=== PATIENT | female | born 1995 | race Caucasian/White ===

== ENCOUNTER → 2016-11-08 | Outpatient (CLI) | payer OTHER ==
[~2016-11-08] MED LIST: ALBUTEROL0.09 MG/A2 INH; ALBUTEROL0.09 MG/AC IH; AMOXICILLIN,AM875 MG PO; AMOXICILLIN500 MG PO; AMOXIL875 MG PO; ANAPROX DS550 MG PO; ATARAX25 MG PO; AUGMENTIN 875 M1 TAB PO; BENTYL10 MG PO; CATAFLAM50 MG PO; CEPHALEXIN500 M1 PO; CHILDREN'S CLARI5 MG PO; CIPRO250 MG PO; CIPROFLOXACIN500 MG PO; CLARITIN10 MG PO; CLINDAMYCIN150 MG PO; CORDROL20 MG PO; CYCLOBENZAPRINE5 M3 PO; DICYCLOMINE HCL20 MG PO; DIFLUCAN150 MG PO; DIFLUCAN50 MG PO; DOXYCYCLINE100 M2 PO; FIORICET 325 MG1 TAB PO; FLAGYL500 MG PO; FLEXERIL10 MG PO; FLEXERIL5 MG PO; HYDROCODONE BIT1 T11 PO; IBU800 M1 PO; KEFLEX500 M1 PO; KEFLEX500 MG PO; KENALOG0.11 TP; LIDEX 0.05% CRE15 GM T; LIDEX0.05% T; LORATADINE10 M1 PO; MACROBID100 M1 PO; MEDROL DOSEPAK4 MG PO; MOTRIN400 MG PO; MOTRIN600 MG PO; MOTRIN800 MG PO; MYCOLOG CREAM 115 GM PO; Motrin,Rufen800 MG PO; NAPROSYN500 MG PO; NEXIUM40 MG PO; NIX CREME RINSE60 M1 PO; NKHM; OMNICEF300 MG PO; PEN-VEE K500 MG PO; PONSTEL250 MG PO; PREDNICOT20 MG PO; PRENATAL1 TA2 PO; PRENATAL1 TA6 PO; PREVACID SOLUTA30 MG PO; PRILOSEC20 M1 PO; PRILOSEC20 MG PO; PROVENTIL0.09 MG/AC IH; PYRIDIUM200 MG PO; ROBITUSSIN AC 10 MG/ PO; ROBITUSSIN AC 110 ML PO; ROBITUSSIN DM120 ML PO; ROBITUSSIN DM240 ML PO; TESSALON PERLE200 MG PO; TRAMADOL HCL50 MG PO; TYLENOL325 M1 PO; ULTRAM50 MG PO; VIBRAMYCIN100 MG PO; VICODIN 5/500 505 M1 PO; ZANTAC 150150 MG PO; ZITHROMAX Z PA250 MG PO; ZITHROMAX250 MG PO; ZOFRAN ODT4 MG SL; ZOFRAN4 MG PO; ZYRTEC10 M1 PO; Zofran4 MG PO
== END | disposition home or self-care (01) ==
LOC: US 17:00
DX: R10.2 Pelvic and perineal pain (principal)

== ENCOUNTER 2016-11-10 17:53 | Emergency (ER) | payer OTHER ==
[~2016-11-10] VITALS: Wt 72.6 kg
[~2016-11-10 17:53] MED LIST changes: -CEPHALEXIN500 M1 PO; -NIX CREME RINSE60 M1 PO; -TYLENOL325 M1 PO
[2016-11-10] MEDS ORDERED: CEPHALEXIN500 M1 PO (18:32)
[2016-11-10] MEDS ORDERED: TYLENOL325 M1 PO (18:32)
[2016-11-10] MEDS ORDERED: NIX CREME RINSE60 M1 PO (18:32)
== END 2016-11-10 19:46 | disposition home or self-care (01) ==
LOC: ED 17:53
DX: B85.2 Pediculosis, unspecified (principal); L02.811 Cutaneous abscess of head [any part, except face]; K21.9 Gastro-esophageal reflux disease without esophagitis; G43.909 Migraine, unspecified, not intractable, without status migrainosus; Z88.2 Allergy status to sulfonamides

== ENCOUNTER 2016-11-26 00:58 | Emergency (ER) | payer SELFPAY ==
[~2016-11-26] VITALS: Ht 167.6 cm; Wt 56.2 kg
[~2016-11-26 00:58] MED LIST changes: +CEPHALEXIN500 M1 PO; +NIX CREME RINSE60 M1 PO; +TYLENOL325 M1 PO
[2016-11-26 01:06] VITALS: BP 116/70
[2016-11-26] MEDS ORDERED: ZITHROMAX250 MG PO (02:26)
[2016-11-26 02:36] LABS: BILIRUBIN NEGATIVE (NEGATIVE); BLOOD NEGATIVE (NEGATIVE); CLARITY CLEAR (CLEAR); COLOR YELLOW (YELLOW); GLUCOSE NEGATIVE (NEGATIVE); KETONE NEGATIVE (NEGATIVE); LEUKO ESTERASE NEGATIVE (NEGATIVE); NITRITE NEGATIVE (NEGATIVE); PROTEIN NEGATIVE (NEGATIVE); SPECIFIC GRAVITY 1.015 (1.005-1.030); UROBILINOGEN 0.2 E.U./dl (0.2-1.0)
[2016-11-26 02:49] LABS: URINE REFLEX COMMENT NO (NO)
== END 2016-11-26 02:33 | disposition home or self-care (01) ==
LOC: ED 00:58
PROVIDERS: Emergency Medicine Emergency Medical Services
DX: N76.0 Acute vaginitis (principal); F17.200 Nicotine dependence, unspecified, uncomplicated; K21.9 Gastro-esophageal reflux disease without esophagitis; G43.909 Migraine, unspecified, not intractable, without status migrainosus; Z88.2 Allergy status to sulfonamides

== ENCOUNTER 2017-09-03 16:44 | Emergency (ER) | payer OTHER ==
[~2017-09-03] VITALS: Ht 167.6 cm; Wt 49.9 kg
[2017-09-03 17:31] LABS: BILIRUBIN 1+ (NEGATIVE); BLOOD 3+ (NEGATIVE); CLARITY CLOUDY (CLEAR); COLOR YELLOW (YELLOW); GLUCOSE NEGATIVE (NEGATIVE); KETONE TRACE (NEGATIVE); LEUKO ESTERASE 1+ (NEGATIVE); NITRITE NEGATIVE (NEGATIVE); PH 5.5 (5.0-9.0); SPECIFIC GRAVITY >= 1.030 (1.005-1.030)
[2017-09-03 17:39] LABS: BACTERIA 4+; RBC TNTC rbc/hpf (0-2); WBC TNTC wbc/hpf (0-5)
[2017-09-03] MEDS ORDERED: AMINOPHYLLIN200 MG PO (19:02)
[2017-09-03 19:19] VITALS: BP 130/80
== END 2017-09-03 19:19 | disposition home or self-care (01) ==
LOC: ED 16:44
PROVIDERS: Emergency Medicine
DX: N39.0 Urinary tract infection, site not specified (principal); K59.00 Constipation, unspecified; K21.9 Gastro-esophageal reflux disease without esophagitis; G43.909 Migraine, unspecified, not intractable, without status migrainosus; Z90.89 Acquired absence of other organs; Z88.2 Allergy status to sulfonamides

== ENCOUNTER 2018-03-04 21:32 | Inpatient (IN) | payer OTHER ==
[~2018-03-04] VITALS: Wt 52.2 kg
[2018-03-04 00:20] VITALS: BP 100/49
[~2018-03-04 21:32] MED LIST changes: +AMINOPHYLLIN200 MG PO
[2018-03-04 21:37] VITALS: BP 107/63
[2018-03-04 22:42] LABS: BASO % 0.2 % (0.0-1.0); EOS # 0.1 10*3/uL (0.0-0.4); EOS % 1.3 % (1.0-4.0); HEMATOCRIT 37.2 % (37.0-47.0); HEMOGLOBIN 12.5 g/dl (12.0-16.0); LYMPH # 2.3 10*3/uL (1.3-4.4); LYMPH % 21.1 % (27.0-41.0); MEAN CELL VOLUME 83.8 fl (81.0-99.0); MEAN CORPUSCULAR HGB 28.2 pg (27.0-31.0); MEAN CORPUSCULAR HGB CONC 33.6 g/dl (33.0-37.0); MONO # 0.8 10*3/uL (0.1-1.0); MONO % 7.1 % (3.0-9.0); NEUT # 7.6 10*3/uL (2.3-7.9); PLATELET COUNT AUTOMATED 265 10*3/uL (130-400); RED BLOOD COUNT 4.44 10*6/uL (4.10-5.10); RED CELL DISTRI WIDTH 12.5 % (0-14.5); WHITE BLOOD COUNT 10.9 10*3/uL (4.8-10.8)
[2018-03-04 22:58] LABS: ALBUMIN 3.4 gm/dl (3.1-4.5); ALKALINE PHOSPHATASE 74 U/L (45-117); B-hCG (QUALITATIVE) NEGATIVE (NEGATIVE); BUN 9 mg/dl (7-24); CHLORIDE 100 mmol/L (98-107); CREATININE 1.12 mg/dL (0.55-1.02); LIPASE 82 U/L (73-393); POTASSIUM 3.3 mmol/L (3.5-5.1); SGOT/AST 30 IU/L (3-35); SGPT/ALT 44 U/L (12-78); SODIUM 134 mmol/L (136-145); TOTAL PROTEIN 8.1 gm/dL (6.4-8.2)
[2018-03-04 23:43] VITALS: BP 101/44
[2018-03-05] VITALS: BP 150/80
[2018-03-05 00:07] LABS: BILIRUBIN 1+ (NEGATIVE); BLOOD NEGATIVE (NEGATIVE); CLARITY CLEAR (CLEAR); COLOR YELLOW (YELLOW); GLUCOSE NEGATIVE (NEGATIVE); KETONE TRACE (NEGATIVE); LEUKO ESTERASE TRACE (NEGATIVE); NITRITE NEGATIVE (NEGATIVE)
[2018-03-05 00:16] LABS: BACTERIA 1+; RBC 0-2 rbc/hpf (0-2)
[2018-03-05 06:28] LABS: BUN 8 mg/dl (7-24); CHLORIDE 112 mmol/L (98-107); CREATININE 0.73 mg/dL (0.55-1.02); FREE T4 1.55 ng/dl (0.76-1.46); PHOSPHOROUS 4.2 mg/dL (2.5-4.9); POTASSIUM 4.2 mmol/L (3.5-5.1); SODIUM 145 mmol/L (136-145)
[2018-03-05 06:33] LABS: THYROID STIM HORMONE (HS) 0.615 uIU/ml (0.358-4.75)
[2018-03-05 06:34] LABS: BASO % 0.3 % (0.0-1.0); EOS # 0.3 10*3/uL (0.0-0.4); EOS % 3.5 % (1.0-4.0); LYMPH # 2.7 10*3/uL (1.3-4.4); LYMPH % 34.8 % (27.0-41.0); MEAN CORPUSCULAR HGB 28.6 pg (27.0-31.0); MEAN CORPUSCULAR HGB CONC 32.9 g/dl (33.0-37.0); MEAN PLATELET VOLUME 11.2 fl (9.6-12.3); MONO # 0.8 10*3/uL (0.1-1.0); MONO % 10.4 % (3.0-9.0); NEUT # 3.9 10*3/uL (2.3-7.9); NEUT % 50.7 % (47.0-73.0); PLATELET COUNT AUTOMATED 211 10*3/uL (130-400); RED BLOOD COUNT 3.46 10*6/uL (4.10-5.10); RED CELL DISTRI WIDTH 12.8 % (0-14.5); WHITE BLOOD COUNT 7.7 10*3/uL (4.8-10.8)
[2018-03-05 06:44] LABS: HEMATOCRIT 30.1 % (37.0-47.0); HEMOGLOBIN 9.9 g/dl (12.0-16.0)
[2018-03-05 08:00] VITALS: BP 87/50
[2018-03-05 08:38] LABS: VITAMIN D, 25-HYDROXY 20.9 ng/mL (30-100)
[2018-03-05 10:20] VITALS: BP 108/56
[2018-03-05 12:00] VITALS: BP 104/56
[2018-03-05 16:00] VITALS: BP 101/54
[2018-03-05 20:00] VITALS: BP 109/61
[2018-03-06] VITALS: BP 112/67
[2018-03-06 07:21] LABS: BASO % 0.1 % (0.0-1.0); HEMATOCRIT 34.1 % (37.0-47.0); HEMOGLOBIN 10.9 g/dl (12.0-16.0); LYMPH # 1.4 10*3/uL (1.3-4.4); LYMPH % 18.8 % (27.0-41.0); MEAN CELL VOLUME 87.4 fl (81.0-99.0); MEAN CORPUSCULAR HGB 27.9 pg (27.0-31.0); MEAN PLATELET VOLUME 11.1 fl (9.6-12.3); MONO # 0.3 10*3/uL (0.1-1.0); MONO % 3.3 % (3.0-9.0); NEUT # 5.8 10*3/uL (2.3-7.9); NEUT % 77.1 % (47.0-73.0); PLATELET COUNT AUTOMATED 246 10*3/uL (130-400); RED CELL DISTRI WIDTH 12.8 % (0-14.5); WHITE BLOOD COUNT 7.5 10*3/uL (4.8-10.8)
[2018-03-06 07:34] LABS: BUN 5 mg/dl (7-24); CHLORIDE 112 mmol/L (98-107); CREATININE 0.61 mg/dL (0.55-1.02); POTASSIUM 4.2 mmol/L (3.5-5.1); SODIUM 143 mmol/L (136-145)
[2018-03-06 08:00] VITALS: BP 108/55
[2018-03-06] MEDS ORDERED: LEVAQUIN750 M1 PO (10:06)
[2018-03-06] MEDS ORDERED: PREDNISONE10 MG PO (10:06)
[2018-03-06] MEDS ORDERED: VITAMIN D-32000 UNIT PO (10:06)
[2018-03-06] MEDS ORDERED: MUCINEX ER600 MG PO (10:06)
== END 2018-03-06 10:27 | disposition home or self-care (01) | DRG 871 ==
LOC: ED 21:32 → 5E 22:47 → EDHOLD 22:47 → 5E 23:29
PROVIDERS: Emergency Medicine Emergency Medical Services; Family Medicine; Internal Medicine
DX: A41.9 Sepsis, unspecified organism (principal); J18.1 Lobar pneumonia, unspecified organism; E44.0 Moderate protein-calorie malnutrition; E87.1 Hypo-osmolality and hyponatremia; Z68.1 Body mass index [BMI] 19.9 or less, adult; E87.6 Hypokalemia; E86.0 Dehydration; L23.9 Allergic contact dermatitis, unspecified cause; F17.200 Nicotine dependence, unspecified, uncomplicated; L23.7 Allergic contact dermatitis due to plants, except food; K59.00 Constipation, unspecified; R79.82 Elevated C-reactive protein (CRP); G43.909 Migraine, unspecified, not intractable, without status migrainosus; M54.5 Low back pain; K21.9 Gastro-esophageal reflux disease without esophagitis; Z88.2 Allergy status to sulfonamides; Z71.6 Tobacco abuse counseling; Z72.89 Other problems related to lifestyle; Z87.19 Personal history of other diseases of the digestive system; Z82.49 Family history of ischemic heart disease and other diseases of the circulatory system; Z83.6 Family history of other diseases of the respiratory system

== ENCOUNTER 2018-06-23 10:51 | Emergency (ER) | payer OTHER ==
[~2018-06-23] VITALS: Ht 170.1 cm; Wt 54.4 kg
[~2018-06-23 10:51] MED LIST changes: +CLINDAMYCIN HC300 MG PO; +LEVAQUIN750 M1 PO; +MUCINEX ER600 MG PO; +PREDNISONE10 MG PO; +VITAMIN D-32000 UNIT PO
[2018-06-23 10:56] VITALS: BP 118/68
[2018-06-23 11:47] LABS: BILIRUBIN NEGATIVE (NEGATIVE); BLOOD 3+ (NEGATIVE); CLARITY CLOUDY (CLEAR); COLOR YELLOW (YELLOW); GLUCOSE NEGATIVE (NEGATIVE); KETONE TRACE (NEGATIVE); LEUKO ESTERASE NEGATIVE (NEGATIVE); NITRITE NEGATIVE (NEGATIVE); SPECIFIC GRAVITY >= 1.030 (1.005-1.030); UROBILINOGEN 0.2 E.U./dl (0.2-1.0)
[2018-06-23 12:02] LABS: RBC TNTC rbc/hpf (0-2)
[2018-06-23 12:03] LABS: CALCIUM OXALATE CRYSTALS 2+; MUCOUS 1+
[2018-06-23 12:06] LABS: BACTERIA 1+
[2018-06-23] MEDS ORDERED: AMOXICILLIN500 M2 PO (12:34)
[2018-06-23] MEDS ORDERED: Motrin,Rufen800 MG PO (12:34)
== END 2018-06-23 13:32 | disposition home or self-care (01) ==
LOC: ED 10:51
PROVIDERS: Nurse Practitioner Family
DX: K08.89 Other specified disorders of teeth and supporting structures (principal); N89.8 Other specified noninflammatory disorders of vagina; F17.200 Nicotine dependence, unspecified, uncomplicated; Z11.3 Encounter for screening for infections with a predominantly sexual mode of transmission; Z88.2 Allergy status to sulfonamides; Z79.899 Other long term (current) drug therapy; Z79.2 Long term (current) use of antibiotics; Z98.890 Other specified postprocedural states

== ENCOUNTER 2018-07-05 08:29 | Emergency (ER) | payer OTHER ==
[~2018-07-05] VITALS: Ht 167.6 cm; Wt 54.4 kg
[~2018-07-05 08:29] MED LIST changes: +AMOXICILLIN500 M2 PO
[2018-07-05 08:32] VITALS: BP 125/76
[2018-07-05] MEDS ORDERED: ZOFRAN4 MG PO (09:00)
[2018-07-05] MEDS ORDERED: PENICILLIN VK500 MG PO (09:00)
[2018-07-05] MEDS ORDERED: Peridex 473 ML473 ML PO (09:00)
[2018-07-05] MEDS ORDERED: NAPROSYN500 MG PO (09:00)
== END 2018-07-05 10:09 | disposition home or self-care (01) ==
LOC: ED 08:29
DX: K02.9 Dental caries, unspecified (principal); R03.0 Elevated blood-pressure reading, without diagnosis of hypertension; K08.89 Other specified disorders of teeth and supporting structures; K21.9 Gastro-esophageal reflux disease without esophagitis; E87.1 Hypo-osmolality and hyponatremia; E87.6 Hypokalemia; G43.909 Migraine, unspecified, not intractable, without status migrainosus; F10.10 Alcohol abuse, uncomplicated; Z90.89 Acquired absence of other organs; Z88.2 Allergy status to sulfonamides

== ENCOUNTER 2018-09-18 12:29 | Emergency (ER) | payer OTHER ==
[~2018-09-18] VITALS: Wt 54.4 kg
[~2018-09-18 12:29] MED LIST changes: +PENICILLIN VK500 MG PO; +Peridex 473 ML473 ML PO
[2018-09-18 12:30] VITALS: BP 116/51
[2018-09-18] MEDS ORDERED: IBU800 MG PO (14:20)
== END 2018-09-18 14:16 | disposition home or self-care (01) ==
LOC: ED 12:29
DX: G56.01 Carpal tunnel syndrome, right upper limb (principal); F17.200 Nicotine dependence, unspecified, uncomplicated; Z88.2 Allergy status to sulfonamides

== ENCOUNTER 2018-10-09 10:38 | Emergency (ER) | payer OTHER ==
[~2018-10-09 10:38] MED LIST changes: +IBU800 MG PO
[2018-10-09 10:40] VITALS: BP 114/34
[2018-10-09] MEDS ORDERED: IBUPROFEN600 MG PO (11:27)
[2018-10-09] MEDS ORDERED: AUGMENTIN 875875 MG PO (11:27)
[2018-12-16] MEDS ORDERED: NAPROSYN500 MG PO (12:28)
[2018-12-16] MEDS ORDERED: CLINDAMYCIN HC300 MG PO (12:28)
[2018-12-26] MEDS ORDERED: PENICILLIN-VK500 MG PO (08:15)
[2018-12-26] MEDS ORDERED: NAPROSYN500 MG PO (08:15)
[2018-12-26] MEDS ORDERED: TYLENOL325 M1 PO (08:15)
[2019-02-10] MEDS ORDERED: ZITHROMAX250 MG PO (05:01)
[2019-02-10] MEDS ORDERED: ULTRAM50 MG PO (05:01)
== END 2018-10-09 11:35 | disposition home or self-care (01) ==
LOC: ED 10:38
DX: K08.89 Other specified disorders of teeth and supporting structures (principal); F17.200 Nicotine dependence, unspecified, uncomplicated; Z88.2 Allergy status to sulfonamides

== ENCOUNTER → 2018-10-14 | Outpatient (CLI) | payer OTHER ==
[~2018-10-14] MED LIST changes: +AUGMENTIN 875875 MG PO; +IBUPROFEN600 MG PO; +PENICILLIN-VK500 MG PO; +PREDNISONE20 M1 PO
== END | disposition home or self-care (01) ==
LOC: ORTHO 02:15
DX: M25.531 Pain in right wrist (principal)

== ENCOUNTER 2018-12-11 22:26 | Emergency (ER) | payer OTHER ==
[~2018-12-11] VITALS: Ht 167.6 cm; Wt 54.4 kg
[~2018-12-11 22:26] MED LIST changes: -PENICILLIN-VK500 MG PO; -PREDNISONE20 M1 PO
[2018-12-11 22:32] VITALS: BP 108/66
[2018-12-11 23:14] LABS: BILIRUBIN NEGATIVE (NEGATIVE); BLOOD NEGATIVE (NEGATIVE); CLARITY CLEAR (CLEAR); COLOR YELLOW (YELLOW); GLUCOSE NEGATIVE (NEGATIVE); KETONE NEGATIVE (NEGATIVE); LEUKO ESTERASE NEGATIVE (NEGATIVE); NITRITE NEGATIVE (NEGATIVE); PH 7.5 (5.0-9.0); UROBILINOGEN 0.2 E.U./dl (0.2-1.0)
[2018-12-11 23:33] LABS: WBC 0-2 wbc/hpf (0-5)
[2018-12-16] MEDS ORDERED: CLINDAMYCIN HC300 MG PO (12:28)
[2018-12-16] MEDS ORDERED: NAPROSYN500 MG PO (12:28)
[2018-12-26] MEDS ORDERED: PENICILLIN-VK500 MG PO (08:15)
[2018-12-26] MEDS ORDERED: NAPROSYN500 MG PO (08:15)
[2018-12-26] MEDS ORDERED: TYLENOL325 M1 PO (08:15)
[2019-02-10] MEDS ORDERED: ZITHROMAX250 MG PO (05:01)
[2019-02-10] MEDS ORDERED: ULTRAM50 MG PO (05:01)
== END 2018-12-11 23:58 | disposition home or self-care (01) ==
LOC: ED 22:26
PROVIDERS: Emergency Medicine Emergency Medical Services
DX: K04.7 Periapical abscess without sinus (principal); J32.9 Chronic sinusitis, unspecified; R10.9 Unspecified abdominal pain; K21.9 Gastro-esophageal reflux disease without esophagitis; G43.909 Migraine, unspecified, not intractable, without status migrainosus; F17.200 Nicotine dependence, unspecified, uncomplicated; Z88.2 Allergy status to sulfonamides; Z79.899 Other long term (current) drug therapy; Z79.2 Long term (current) use of antibiotics

== ENCOUNTER 2019-04-05 10:34 | Emergency (ER) | payer OTHER ==
[~2019-04-05] VITALS: Ht 167.6 cm; Wt 54.4 kg
[~2019-04-05 10:34] MED LIST changes: +PENICILLIN-VK500 MG PO
[2019-04-05 11:31] LABS: BASO % 0.4 % (0.0-1.0); EOS # 0.6 10*3/uL (0.0-0.4); EOS % 7.1 % (1.0-4.0); HEMATOCRIT 40.3 % (37.0-47.0); HEMOGLOBIN 13.6 g/dl (12.0-16.0); LYMPH # 3.8 10*3/uL (1.3-4.4); LYMPH % 48.3 % (27.0-41.0); MEAN CELL VOLUME 86.7 fl (81.0-99.0); MEAN CORPUSCULAR HGB 29.2 pg (27.0-31.0); MEAN CORPUSCULAR HGB CONC 33.7 g/dl (33.0-37.0); MEAN PLATELET VOLUME 9.7 fl (9.6-12.3); MONO # 0.5 10*3/uL (0.1-1.0); MONO % 6.4 % (3.0-9.0); NEUT % 37.5 % (47.0-73.0); PLATELET COUNT AUTOMATED 316 10*3/uL (130-400); RED BLOOD COUNT 4.65 10*6/uL (4.10-5.10); WHITE BLOOD COUNT 7.9 10*3/uL (4.8-10.8)
[2019-04-05 12:15] LABS: ALBUMIN 3.5 gm/dl (3.1-4.5); ALKALINE PHOSPHATASE 70 U/L (45-117); BUN 7 mg/dl (7-24); CHLORIDE 106 mmol/L (98-107); CREATININE 0.69 mg/dL (0.55-1.02); SGOT/AST 16 IU/L (3-35); SGPT/ALT 26 U/L (12-78); SODIUM 138 mmol/L (136-145); TOTAL PROTEIN 7.2 gm/dL (6.4-8.2)
[2019-04-05 12:20] VITALS: BP 108/63
[2019-04-05 12:28] LABS: BILIRUBIN NEGATIVE (NEGATIVE); BLOOD 1+ (NEGATIVE); CLARITY CLOUDY (CLEAR); COLOR YELLOW (YELLOW); GLUCOSE NEGATIVE (NEGATIVE); KETONE NEGATIVE (NEGATIVE); LEUKO ESTERASE TRACE (NEGATIVE); NITRITE NEGATIVE (NEGATIVE); SPECIFIC GRAVITY 1.025 (1.005-1.030); UROBILINOGEN 0.2 E.U./dl (0.2-1.0)
[2019-04-05 12:37] LABS: RBC 41-50 rbc/hpf (0-2)
[2019-04-05 12:40] LABS: BACTERIA 3+; CALCIUM OXALATE CRYSTALS 2+; EPITHELIAL CELLS 15-20
[2019-04-05] MEDS ORDERED: PREDNISONE20 M1 PO (15:11)
== END 2019-04-05 15:34 | disposition home or self-care (01) ==
LOC: ED 10:34
PROVIDERS: Physician Assistant
DX: M54.32 Sciatica, left side (principal); M79.605 Pain in left leg; F17.200 Nicotine dependence, unspecified, uncomplicated; Z88.2 Allergy status to sulfonamides

== ENCOUNTER 2019-05-06 15:36 | Emergency (ER) | payer OTHER ==
[~2019-05-06] VITALS: Ht 167.6 cm; Wt 56.7 kg
[~2019-05-06 15:36] MED LIST changes: +PREDNISONE20 M1 PO
[2019-05-06 15:39] VITALS: BP 121/76
[2019-05-06 17:22] LABS: INTERNATIONAL NORM RATIO 0.9 (2.0-3.5)
[2019-05-06 17:29] LABS: ALBUMIN 3.7 gm/dl (3.1-4.5); ALKALINE PHOSPHATASE 89 U/L (45-117); BUN 9 mg/dl (7-24); CHLORIDE 102 mmol/L (98-107); CREATININE 0.84 mg/dL (0.55-1.02); POTASSIUM 4.1 mmol/L (3.5-5.1); SGOT/AST 43 IU/L (3-35); SODIUM 137 mmol/L (136-145)
[2019-05-06 17:41] LABS: SGPT/ALT 84 U/L (12-78)
== END 2019-05-06 18:24 | disposition left against medical advice (07) ==
LOC: ED 15:36
PROVIDERS: Nurse Practitioner Family
DX: M79.605 Pain in left leg (principal); F17.200 Nicotine dependence, unspecified, uncomplicated; Z90.89 Acquired absence of other organs; Z79.899 Other long term (current) drug therapy; Z79.2 Long term (current) use of antibiotics; Z88.2 Allergy status to sulfonamides; Z98.890 Other specified postprocedural states

== ENCOUNTER 2019-07-04 23:42 | Emergency (ER) | payer OTHER ==
[~2019-07-04] VITALS: Ht 167.6 cm; Wt 54.0 kg
[2019-07-04 23:42] VITALS: BP 130/78
[2019-07-05 00:03] LABS: BILIRUBIN NEGATIVE (NEGATIVE); BLOOD NEGATIVE (NEGATIVE); CLARITY SL CLOUDY (CLEAR); COLOR YELLOW (YELLOW); GLUCOSE NEGATIVE (NEGATIVE); KETONE NEGATIVE (NEGATIVE); LEUKO ESTERASE TRACE (NEGATIVE); NITRITE NEGATIVE (NEGATIVE); SPECIFIC GRAVITY >= 1.030 (1.005-1.030); UROBILINOGEN 0.2 E.U./dl (0.2-1.0)
[2019-07-05 00:19] LABS: EPITHELIAL CELLS 30-35; WBC 16-20 wbc/hpf (0-5)
[2019-07-05] MEDS ORDERED: DOXYCYCLINE100 M3 PO (00:36)
[2019-07-05] MEDS ORDERED: PYRIDIUM200 M1 PO (00:36)
[2019-07-05] MEDS ORDERED: KEFLEX500 M1 PO (00:40)
== END 2019-07-05 00:56 | disposition home or self-care (01) ==
LOC: ED 23:42
PROVIDERS: Emergency Medicine Emergency Medical Services
DX: N39.0 Urinary tract infection, site not specified (principal); K21.9 Gastro-esophageal reflux disease without esophagitis; G43.909 Migraine, unspecified, not intractable, without status migrainosus; F17.200 Nicotine dependence, unspecified, uncomplicated; Z20.2 Contact with and (suspected) exposure to infections with a predominantly sexual mode of transmission; Z88.2 Allergy status to sulfonamides

== ENCOUNTER 2019-07-30 05:35 | Emergency (ER) | payer OTHER ==
[~2019-07-30] VITALS: Ht 167.6 cm; Wt 54.4 kg
[~2019-07-30 05:35] MED LIST changes: +DOXYCYCLINE100 M3 PO; +PYRIDIUM200 M1 PO
[2019-07-30 05:36] VITALS: BP 117/79
== END 2019-07-30 06:25 | disposition home or self-care (01) ==
LOC: ED 05:35
DX: S46.912A Strain of unspecified muscle, fascia and tendon at shoulder and upper arm level, left arm, initial encounter (principal); K21.9 Gastro-esophageal reflux disease without esophagitis; G43.909 Migraine, unspecified, not intractable, without status migrainosus; J45.909 Unspecified asthma, uncomplicated; F17.200 Nicotine dependence, unspecified, uncomplicated; Z88.2 Allergy status to sulfonamides; Z79.899 Other long term (current) drug therapy; Z79.2 Long term (current) use of antibiotics; W50.0XXA Accidental hit or strike by another person, initial encounter; Y93.89 Activity, other specified; Y92.89 Other specified places as the place of occurrence of the external cause; Y99.8 Other external cause status

== ENCOUNTER 2019-08-12 01:10 | Emergency (ER) | payer OTHER ==
[~2019-08-12] VITALS: Ht 170.1 cm; Wt 45.4 kg
[2019-08-12 03:00] VITALS: BP 105/71
== END 2019-08-12 06:10 | disposition home or self-care (01) ==
LOC: ED 01:10
DX: T40.2X1A Poisoning by other opioids, accidental (unintentional), initial encounter (principal); R40.20 Unspecified coma; R47.81 Slurred speech; R45.1 Restlessness and agitation; K21.9 Gastro-esophageal reflux disease without esophagitis; G43.909 Migraine, unspecified, not intractable, without status migrainosus; J45.909 Unspecified asthma, uncomplicated; F17.200 Nicotine dependence, unspecified, uncomplicated; Z88.2 Allergy status to sulfonamides; Y92.481 Parking lot as the place of occurrence of the external cause

== ENCOUNTER 2020-03-08 22:34 | Emergency (ER) | payer OTHER ==
[2020-03-08 22:36] VITALS: BP 105/66
[2020-03-08 23:16] LABS: BASO % 0.2 % (0.0-1.0); EOS # 0.2 10*3/uL (0.0-0.4); EOS % 3.7 % (1.0-4.0); HEMATOCRIT 40.2 % (37.0-47.0); LYMPH # 2.1 10*3/uL (1.3-4.4); MEAN CORPUSCULAR HGB 29.3 pg (27.0-31.0); MEAN CORPUSCULAR HGB CONC 33.3 g/dl (33.0-37.0); MEAN PLATELET VOLUME 9.6 fl (9.6-12.3); MONO # 0.4 10*3/uL (0.1-1.0); MONO % 6.2 % (3.0-9.0); NEUT # 3.7 10*3/uL (2.3-7.9); NEUT % 57.7 % (47.0-73.0); PLATELET COUNT AUTOMATED 241 10*3/uL (130-400); RED BLOOD COUNT 4.57 10*6/uL (4.10-5.10); RED CELL DISTRI WIDTH 15.1 % (0-14.5); WHITE BLOOD COUNT 6.4 10*3/uL (4.8-10.8)
[2020-03-08 23:26] LABS: ALBUMIN 3.8 gm/dl (3.1-4.5); ALKALINE PHOSPHATASE 95 U/L (45-117); BUN 12 mg/dl (7-24); CHLORIDE 109 mmol/L (98-107); LIPASE 51 U/L (73-393); POTASSIUM 3.7 mmol/L (3.5-5.1); SGOT/AST 138 IU/L (3-35); SGPT/ALT 172 U/L (12-78); SODIUM 139 mmol/L (136-145); TOTAL PROTEIN 7.8 gm/dL (6.4-8.2)
[2020-03-08 23:29] LABS: BACTERIA TRACE; BILIRUBIN NEGATIVE (NEGATIVE); BLOOD NEGATIVE (NEGATIVE); CLARITY CLEAR (CLEAR); COLOR YELLOW (YELLOW); GLUCOSE NEGATIVE (NEGATIVE); KETONE NEGATIVE (NEGATIVE); LEUKO ESTERASE NEGATIVE (NEGATIVE); NITRITE NEGATIVE (NEGATIVE); SPECIFIC GRAVITY 1.005 (1.005-1.030); UROBILINOGEN 0.2 E.U./dl (0.2-1.0); WBC 0-2 wbc/hpf (0-5)
== END 2020-03-09 00:57 | disposition home or self-care (01) ==
LOC: ED 22:34
PROVIDERS: Nurse Practitioner Family
DX: R10.9 Unspecified abdominal pain (principal); K21.9 Gastro-esophageal reflux disease without esophagitis; J45.909 Unspecified asthma, uncomplicated; F17.200 Nicotine dependence, unspecified, uncomplicated; Z88.2 Allergy status to sulfonamides

== ENCOUNTER 2020-04-06 18:12 | Emergency (ER) | payer OTHER ==
[~2020-04-06] VITALS: Ht 167.6 cm; Wt 54.4 kg
[2020-04-06 20:09] LABS: BASO % 0.2 % (0.0-1.0); EOS # 0.1 10*3/uL (0.0-0.4); EOS % 0.9 % (1.0-4.0); HEMATOCRIT 47.1 % (37.0-47.0); LYMPH # 1.8 10*3/uL (1.3-4.4); LYMPH % 17.5 % (27.0-41.0); MEAN CELL VOLUME 89.7 fl (81.0-99.0); MEAN CORPUSCULAR HGB 29.5 pg (27.0-31.0); MEAN CORPUSCULAR HGB CONC 32.9 g/dl (33.0-37.0); MEAN PLATELET VOLUME 9.7 fl (9.6-12.3); MONO # 0.9 10*3/uL (0.1-1.0); MONO % 8.2 % (3.0-9.0); NEUT # 7.6 10*3/uL (2.3-7.9); NEUT % 72.8 % (47.0-73.0); PLATELET COUNT AUTOMATED 254 10*3/uL (130-400); RED BLOOD COUNT 5.25 10*6/uL (4.10-5.10); RED CELL DISTRI WIDTH 14.1 % (0-14.5); WHITE BLOOD COUNT 10.4 10*3/uL (4.8-10.8)
[2020-04-06 20:26] LABS: ALBUMIN 3.8 gm/dl (3.1-4.5); ALKALINE PHOSPHATASE 105 U/L (45-117); BUN 12 mg/dl (7-24); CHLORIDE 105 mmol/L (98-107); CREATININE 1.45 mg/dL (0.55-1.02); POTASSIUM 4.1 mmol/L (3.5-5.1); SGOT/AST 138 IU/L (3-35); SGPT/ALT 169 U/L (12-78); SODIUM 139 mmol/L (136-145); TOTAL PROTEIN 8.2 gm/dL (6.4-8.2)
[2020-04-06 20:30] LABS: ACETAMINOPHEN (TYLENOL) < 5.0 ug/ml (10-30)
[2020-04-07 00:01] LABS: BILIRUBIN NEGATIVE (NEGATIVE); BLOOD TRACE-INTACT (NEGATIVE); CLARITY SL CLOUDY (CLEAR); COLOR YELLOW (YELLOW); GLUCOSE NEGATIVE (NEGATIVE); KETONE NEGATIVE (NEGATIVE); LEUKO ESTERASE NEGATIVE (NEGATIVE); NITRITE NEGATIVE (NEGATIVE); UROBILINOGEN 0.2 E.U./dl (0.2-1.0)
[2020-04-07 00:02] LABS: URINE AMPHETAMINES > 1000 (1000ng/ml); URINE BARBITURATES < 200 (200ng/ml); URINE BENZODIAZEPINES > 200 (200ng/ml); URINE CANNABINOIDS (THC) > 50 (50ng/ml); URINE COCAINE > 300 (300ng/ml); URINE METHADONE < 300 (300ng/ml); URINE OPIATES > 300 (300ng/ml); URINE PHENCYCLIDINE < 25 (25ng/ml)
[2020-04-07 00:11] VITALS: BP 110/60
[2020-04-07 00:28] LABS: BACTERIA 2+; EPITHELIAL CELLS 41-50; WBC 0-2 wbc/hpf (0-5)
== END 2020-04-07 01:05 | disposition home or self-care (01) ==
LOC: ED 18:12
PROVIDERS: Emergency Medicine
DX: S66.911A Strain of unspecified muscle, fascia and tendon at wrist and hand level, right hand, initial encounter (principal); S80.812A Abrasion, left lower leg, initial encounter; S80.811A Abrasion, right lower leg, initial encounter; G43.909 Migraine, unspecified, not intractable, without status migrainosus; F19.10 Other psychoactive substance abuse, uncomplicated; K21.9 Gastro-esophageal reflux disease without esophagitis; J45.909 Unspecified asthma, uncomplicated; F17.200 Nicotine dependence, unspecified, uncomplicated; Z88.2 Allergy status to sulfonamides; X58.XXXA Exposure to other specified factors, initial encounter; Y93.89 Activity, other specified; Y92.89 Other specified places as the place of occurrence of the external cause; Y99.8 Other external cause status

== ENCOUNTER 2020-06-13 10:51 | Emergency (ER) | payer OTHER ==
[~2020-06-13] VITALS: Ht 167.6 cm; Wt 54.4 kg
[2020-06-13 11:11] VITALS: BP 111/71
[2020-06-13 11:53] LABS: BASO % 0.3 % (0.0-1.0); EOS # 0.2 10*3/uL (0.0-0.4); EOS % 4.1 % (1.0-4.0); HEMATOCRIT 39.2 % (37.0-47.0); LYMPH # 1.3 10*3/uL (1.3-4.4); LYMPH % 22.4 % (27.0-41.0); MEAN CELL VOLUME 93.3 fl (81.0-99.0); MEAN CORPUSCULAR HGB 30.7 pg (27.0-31.0); MEAN CORPUSCULAR HGB CONC 32.9 g/dl (33.0-37.0); MEAN PLATELET VOLUME 8.9 fl (9.6-12.3); MONO # 0.5 10*3/uL (0.1-1.0); MONO % 9.1 % (3.0-9.0); NEUT # 3.7 10*3/uL (2.3-7.9); NEUT % 63.9 % (47.0-73.0); PLATELET COUNT AUTOMATED 203 10*3/uL (130-400); RED CELL DISTRI WIDTH 12.9 % (0-14.5); WHITE BLOOD COUNT 5.8 10*3/uL (4.8-10.8)
[2020-06-13 12:09] LABS: ALBUMIN 3.8 gm/dl (3.1-4.5); ALKALINE PHOSPHATASE 86 U/L (45-117); BUN 7 mg/dl (7-24); CHLORIDE 102 mmol/L (98-107); SGOT/AST 117 IU/L (3-35); SGPT/ALT 119 U/L (12-78); SODIUM 135 mmol/L (136-145); TOTAL PROTEIN 7.3 gm/dL (6.4-8.2)
[2020-06-13 13:10] LABS: URINE AMPHETAMINES > 1000 (1000ng/ml); URINE BARBITURATES < 200 (200ng/ml); URINE BENZODIAZEPINES < 200 (200ng/ml); URINE CANNABINOIDS (THC) > 50 (50ng/ml); URINE COCAINE > 300 (300ng/ml); URINE METHADONE < 300 (300ng/ml); URINE OPIATES < 300 (300ng/ml)
[2020-06-13 13:14] LABS: URINE PHENCYCLIDINE < 25 (25ng/ml)
[2020-06-13] MEDS ORDERED: CLINDAMYCIN HC300 MG PO (13:19)
== END 2020-06-13 13:35 | disposition home or self-care (01) ==
LOC: ED 10:51
PROVIDERS: Physician Assistant
DX: R60.0 Localized edema (principal); Z88.2 Allergy status to sulfonamides

== ENCOUNTER 2020-07-03 17:01 | Emergency (ER) | payer OTHER | END 2020-07-03 20:47 | disposition left against medical advice (07) | LOC: ED 17:01 | DX: R40.20 Unspecified coma (principal); Z53.21 Procedure and treatment not carried out due to patient leaving prior to being seen by health care provider ==

== ENCOUNTER 2020-07-19 00:36 | Emergency (ER) | payer OTHER ==
[~2020-07-19] VITALS: Ht 167.6 cm; Wt 54.4 kg
[2020-07-19 00:43] VITALS: BP 118/87
[2020-07-19 01:00] LABS: BASO % 0.3 % (0.0-1.0); EOS # 0.4 10*3/uL (0.0-0.4); EOS % 3.5 % (1.0-4.0); HEMATOCRIT 48.4 % (37.0-47.0); LYMPH # 2.6 10*3/uL (1.3-4.4); LYMPH % 25.9 % (27.0-41.0); MEAN CELL VOLUME 92.4 fl (81.0-99.0); MEAN CORPUSCULAR HGB 29.8 pg (27.0-31.0); MEAN CORPUSCULAR HGB CONC 32.2 g/dl (33.0-37.0); MEAN PLATELET VOLUME 9.4 fl (9.6-12.3); MONO # 0.5 10*3/uL (0.1-1.0); NEUT # 6.5 10*3/uL (2.3-7.9); NEUT % 64.8 % (47.0-73.0); PLATELET COUNT AUTOMATED 299 10*3/uL (130-400); RED BLOOD COUNT 5.24 10*6/uL (4.10-5.10); RED CELL DISTRI WIDTH 12.4 % (0-14.5); WHITE BLOOD COUNT 10.1 10*3/uL (4.8-10.8)
[2020-07-19 01:16] LABS: ALBUMIN 4.1 gm/dl (3.1-4.5); ALKALINE PHOSPHATASE 105 U/L (45-117); BUN 11 mg/dl (7-24); CHLORIDE 106 mmol/L (98-107); SGOT/AST 113 IU/L (3-35); SGPT/ALT 130 U/L (12-78); SODIUM 138 mmol/L (136-145)
[2020-07-19 06:32] LABS: BILIRUBIN Negative (Negative); BLOOD Negative (Negative); CLARITY Clear (Clear); COLOR Yellow (Yellow); GLUCOSE Negative (Negative); KETONE Negative (Negative); LEUKO ESTERASE Negative (Negative); NITRITE Negative (Negative); SPECIFIC GRAVITY 1.015 (1.001-1.030)
[2020-07-19 06:41] LABS: URINE AMPHETAMINES > 1000 (1000ng/ml); URINE BARBITURATES < 200 (200ng/ml); URINE BENZODIAZEPINES < 200 (200ng/ml); URINE CANNABINOIDS (THC) > 50 (50ng/ml); URINE COCAINE < 300 (300ng/ml); URINE METHADONE < 300 (300ng/ml); URINE OPIATES < 300 (300ng/ml)
[2020-07-19 06:42] LABS: URINE PHENCYCLIDINE < 25 (25ng/ml)
[2020-07-19 07:09] LABS: BACTERIA 2+
== END 2020-07-19 07:17 | disposition home or self-care (01) ==
LOC: ED 00:36
PROVIDERS: Emergency Medicine
DX: F19.10 Other psychoactive substance abuse, uncomplicated (principal); K21.9 Gastro-esophageal reflux disease without esophagitis; J45.909 Unspecified asthma, uncomplicated; F17.200 Nicotine dependence, unspecified, uncomplicated; Z88.2 Allergy status to sulfonamides; Z79.899 Other long term (current) drug therapy

== ENCOUNTER 2020-09-29 20:58 | Emergency (ER) | payer OTHER ==
[~2020-09-29] VITALS: Ht 167.6 cm; Wt 56.7 kg
[2020-09-29 21:04] VITALS: BP 124/71
== END 2020-09-29 22:48 | disposition home or self-care (01) ==
LOC: ED 20:58
DX: K08.89 Other specified disorders of teeth and supporting structures (principal); K21.9 Gastro-esophageal reflux disease without esophagitis; J45.909 Unspecified asthma, uncomplicated; F17.200 Nicotine dependence, unspecified, uncomplicated; Z53.29 Procedure and treatment not carried out because of patient's decision for other reasons; Z88.2 Allergy status to sulfonamides; Z90.89 Acquired absence of other organs

== ENCOUNTER 2021-02-16 16:12 | Emergency (ER) | payer OTHER ==
[~2021-02-16] VITALS: Wt 59.0 kg
[2021-02-16 16:26] VITALS: BP 130/74
== END 2021-02-16 17:10 | disposition left against medical advice (07) ==
LOC: ED 16:12
DX: Z00.8 Encounter for other general examination (principal); Z53.21 Procedure and treatment not carried out due to patient leaving prior to being seen by health care provider

== ENCOUNTER → 2021-07-26 | Outpatient (CLI) | payer OTHER | END | disposition home or self-care (01) | LOC: RAD 16:13 | PROVIDERS: ATTEND Internal Medicine | DX: M41.26 Other idiopathic scoliosis, lumbar region (principal); M54.50 Low back pain, unspecified ==

== ENCOUNTER 2021-11-12 13:07 | Emergency (ER) | payer OTHER ==
[~2021-11-12] VITALS: Ht 167.6 cm; Wt 59.4 kg
[2021-11-12 13:31] VITALS: BP 102/61
== END 2021-11-12 15:43 | disposition home or self-care (01) ==
LOC: ED 13:07
DX: S63.92XA Sprain of unspecified part of left wrist and hand, initial encounter (principal); S00.83XA Contusion of other part of head, initial encounter; K03.81 Cracked tooth; Z88.2 Allergy status to sulfonamides; Z90.89 Acquired absence of other organs; Z87.891 Personal history of nicotine dependence; Z98.890 Other specified postprocedural states; Y08.89XA Assault by other specified means, initial encounter; Y93.89 Activity, other specified; Y92.89 Other specified places as the place of occurrence of the external cause; Y99.8 Other external cause status

== ENCOUNTER 2022-11-10 19:09 | Emergency (ER) | payer OTHER ==
[2022-11-10 19:19] VITALS: BP 113/58
[2022-11-10] MEDS ORDERED: IBUPROFEN600 MG PO (20:30)
[2022-11-10] MEDS ORDERED: AMOX-CLAV 875-1 EACH PO (20:30)
== END 2022-11-10 20:42 | disposition home or self-care (01) ==
LOC: ED 19:09
DX: K02.9 Dental caries, unspecified (principal); K21.9 Gastro-esophageal reflux disease without esophagitis; J45.909 Unspecified asthma, uncomplicated; Z88.2 Allergy status to sulfonamides; Z90.89 Acquired absence of other organs; Z98.890 Other specified postprocedural states; F17.200 Nicotine dependence, unspecified, uncomplicated; Z88.8 Allergy status to other drugs, medicaments and biological substances

== ENCOUNTER 2023-01-05 19:41 | Emergency (ER) | payer OTHER ==
[~2023-01-05] VITALS: Ht 170.1 cm; Wt 68.0 kg
[~2023-01-05 19:41] MED LIST changes: +AMOX-CLAV 875-1 EACH PO
[2023-01-05 20:06] LABS: BASO % 0.3 % (0.0-1.0); EOS # 0.2 10*3/uL (0.0-0.4); EOS % 1.7 % (1.0-4.0); HEMATOCRIT 42.1 % (37.0-47.0); LYMPH # 2.5 10*3/uL (1.3-4.4); LYMPH % 21.2 % (27.0-41.0); MEAN CORPUSCULAR HGB 26.2 pg (27.0-31.0); MEAN CORPUSCULAR HGB CONC 32.8 g/dl (33.0-37.0); MEAN PLATELET VOLUME 9.5 fl (9.6-12.3); MONO # 0.8 10*3/uL (0.1-1.0); MONO % 6.5 % (3.0-9.0); NEUT # 8.3 10*3/uL (2.3-7.9); PLATELET COUNT AUTOMATED 284 10*3/uL (130-400); RED BLOOD COUNT 5.26 10*6/uL (4.10-5.10); RED CELL DISTRI WIDTH 15.9 % (0-14.5); WHITE BLOOD COUNT 11.9 10*3/uL (4.8-10.8)
[2023-01-05 20:28] LABS: POTASSIUM 4.1 mmol/L (3.4-5.1); TOTAL PROTEIN 8.4 gm/dL (6.0-8.0)
[2023-01-05 23:47] VITALS: BP 116/67
== END 2023-01-06 00:06 | disposition home or self-care (01) ==
LOC: ED 19:41
PROVIDERS: Internal Medicine
DX: R41.82 Altered mental status, unspecified (principal); R79.89 Other specified abnormal findings of blood chemistry; N18.31 Chronic kidney disease, stage 3a; D50.9 Iron deficiency anemia, unspecified; K21.9 Gastro-esophageal reflux disease without esophagitis; J45.909 Unspecified asthma, uncomplicated; Z88.8 Allergy status to other drugs, medicaments and biological substances; Z88.2 Allergy status to sulfonamides; Z98.890 Other specified postprocedural states; Z90.89 Acquired absence of other organs; F17.200 Nicotine dependence, unspecified, uncomplicated

== ENCOUNTER 2023-07-03 16:14 | Emergency (ER) | payer OTHER ==
[~2023-07-03] VITALS: Wt 59.0 kg
[2023-07-03 16:31] VITALS: BP 109/45
[2023-07-03] MEDS ORDERED: CHLORHEXIDINE473 M1 PO (17:13)
[2023-07-03] MEDS ORDERED: AMOX-CLAV 875-1 EACH PO (17:13)
== END 2023-07-03 17:25 | disposition home or self-care (01) ==
LOC: ED 16:14
DX: K04.7 Periapical abscess without sinus (principal); R11.0 Nausea; K21.9 Gastro-esophageal reflux disease without esophagitis; J45.909 Unspecified asthma, uncomplicated; E16.2 Hypoglycemia, unspecified; Z88.2 Allergy status to sulfonamides; Z90.89 Acquired absence of other organs; Z98.890 Other specified postprocedural states; F17.200 Nicotine dependence, unspecified, uncomplicated

== ENCOUNTER 2024-08-14 03:02 | Emergency (ER) | payer OTHER ==
[~2024-08-14] VITALS: Ht 170.1 cm; Wt 57.0 kg
[~2024-08-14 03:02] MED LIST changes: +CHLORHEXIDINE473 M1 PO
[2024-08-14 03:24] VITALS: BP 123/78
[2024-08-14 03:24] LABS: BASO % 0.4 % (0.0-1.0); EOS # 0.4 10*3/uL (0.0-0.4); EOS % 6.3 % (1.0-4.0); MEAN CELL VOLUME 86.9 fl (81.0-99.0); MEAN CORPUSCULAR HGB 28.2 pg (27.0-31.0); MEAN CORPUSCULAR HGB CONC 32.4 g/dl (33.0-37.0); MEAN PLATELET VOLUME 9.1 fl (9.6-12.3); MONO # 0.5 10*3/uL (0.1-1.0); MONO % 8.5 % (3.0-9.0); NEUT # 1.9 10*3/uL (2.3-7.9); NEUT % 33.2 % (47.0-73.0); PLATELET COUNT AUTOMATED 190 10*3/uL (130-400); RED BLOOD COUNT 4.26 10*6/uL (4.10-5.10); RED CELL DISTRI WIDTH 13.8 % (0-14.5); WHITE BLOOD COUNT 5.6 10*3/uL (4.8-10.8)
[2024-08-14 03:47] LABS: BUN 16 mg/dl (9-23); CHLORIDE 104 mmol/L (98-107); POTASSIUM 3.5 mmol/L (3.4-5.1)
[2024-08-14 03:48] LABS: ETHYL ALCOHOL < 3.0 mg/dl (<3)
== END 2024-08-14 06:09 | disposition home or self-care (01) ==
LOC: ED 03:02
PROVIDERS: Internal Medicine
DX: T42.4X1A Poisoning by benzodiazepines, accidental (unintentional), initial encounter (principal); K21.9 Gastro-esophageal reflux disease without esophagitis; J45.909 Unspecified asthma, uncomplicated; F17.200 Nicotine dependence, unspecified, uncomplicated; Z88.2 Allergy status to sulfonamides; Z90.89 Acquired absence of other organs; Z98.890 Other specified postprocedural states; Y92.009 Unspecified place in unspecified non-institutional (private) residence as the place of occurrence of the external cause

== ENCOUNTER 2024-08-27 10:05 | Emergency (ER) | payer OTHER ==
[~2024-08-27] VITALS: Ht 172.7 cm; Wt 61.2 kg
[2024-08-27 10:23] VITALS: BP 122/61
[2024-08-27] MEDS ORDERED: Acetaminophen/Oxycodone 5 MG/325 MG TABLET PO ONE (10:30)
[2024-08-27] MEDS ORDERED: Amoxicillin/Clavulanate Pota 875 MG TAB PO ONE (10:30)
[2024-08-27] MEDS ORDERED: AMOX-CLAV 875-1 EACH PO (10:31)
[2024-08-27] MEDS ORDERED: MELOXICAM15 MG PO (10:31)
== END 2024-08-27 10:38 | disposition home or self-care (01) ==
LOC: ED 10:05
DX: K04.7 Periapical abscess without sinus (principal); K21.9 Gastro-esophageal reflux disease without esophagitis; R22.0 Localized swelling, mass and lump, head; J45.909 Unspecified asthma, uncomplicated; F17.210 Nicotine dependence, cigarettes, uncomplicated; Z88.2 Allergy status to sulfonamides; Z90.89 Acquired absence of other organs; Z98.890 Other specified postprocedural states

== ENCOUNTER 2025-04-21 03:33 | Emergency (ER) | payer OTHER ==
[~2025-04-21] VITALS: Ht 172.7 cm; Wt 65.8 kg
[~2025-04-21 03:33] MED LIST changes: +MELOXICAM15 MG PO
[2025-04-21 03:49] VITALS: BP 112/55
[2025-04-21 04:12] LABS: BILIRUBIN Negative (Negative); BLOOD Negative (Negative); CLARITY Clear (Clear); COLOR Yellow (Yellow); KETONE Negative (Negative); LEUKO ESTERASE 1+ (Negative); NITRITE Negative (Negative); SPECIFIC GRAVITY 1.020 (1.001-1.030); UROBILINOGEN 1.0 E.U./dl (0.0-1.0)
[2025-04-21 04:22] LABS: PH 8.5 (4.5-8.0)
[2025-04-21 04:28] LABS: EPITHELIAL CELLS 16-20
[2025-04-21 04:30] LABS: WBC 16-20 wbc/hpf (0-5)
== END 2025-04-21 04:58 | disposition home or self-care (01) ==
LOC: ED 03:33
PROVIDERS: Internal Medicine
DX: R30.0 Dysuria (principal); K21.9 Gastro-esophageal reflux disease without esophagitis; J45.909 Unspecified asthma, uncomplicated; Z87.891 Personal history of nicotine dependence; Z90.89 Acquired absence of other organs; Z88.2 Allergy status to sulfonamides